=== PATIENT | male | born 1960 | race Caucasian/White ===

== ENCOUNTER 2021-04-12 14:30 | Outpatient (CLI) | payer BC | END 2021-04-12 14:31 | disposition home or self-care (01) | LOC: CSHMRI 14:30 | PROVIDERS: ATTEND Urology | DX: R97.20 Elevated prostate specific antigen [PSA] (principal) | CPT/HCPCS: 72197; 82565 ==

== ENCOUNTER 2022-03-28 12:35 | Outpatient (CLI) | payer BC ==
[~2022-03-28 12:35] MED LIST: Magnevist 469MG/ML 20 ML VIAL ONE
== END 2022-03-28 12:36 | disposition home or self-care (01) ==
LOC: CSHMRI 12:35
PROVIDERS: ATTEND Urology
DX: C61 Malignant neoplasm of prostate (principal)
CPT/HCPCS: 72197; 82565